=== PATIENT | male | born 1990 | race Caucasian/White ===

== ENCOUNTER 2016-10-26 00:31 | Emergency (ER) | payer SELFPAY ==
[~2016-10-26] VITALS: Ht 170.2 cm; Wt 108.9 kg
[2016-10-26 01:18] LABS: BASO # 0.1 x10^3/uL (0.0-0.2); BASO % 1 % (0-3); EOS % 3 % (0-3); HEMATOCRIT 44.3 % (39.0-53.0); LYMPH # 3.1 x10^3/uL (1.0-4.8); LYMPH % 35 % (24-48); MEAN CORPUSCULAR HEMOGLOBIN 31 pg (25-35); MEAN CORPUSCULAR HGB CONC 34 g/dL (31-37); MEAN CORPUSCULAR VOLUME 90 fL (79-100); MONO % 9 % (0-9); NEUT % 52 % (31-73); PLATELET COUNT 264 x10^3/uL (140-400); RED BLOOD COUNT 4.91 x10^6/uL (4.30-5.70); RED CELL DISTRIBUTION WIDTH 13.3 % (11.5-14.5); WHITE BLOOD COUNT 8.8 x10^3/uL (4.0-11.0)
[2016-10-26 01:28] LABS: CALCIUM 9.5 mg/dL (8.5-10.1); CREATININE 0.9 mg/dL (0.7-1.3); GFR 103.7; POTASSIUM 4.2 mmol/L (3.5-5.1)
[2016-10-26] MEDS ORDERED: IOHEXOL 300 MG/ML 75 ML VIAL IV ONE (01:30)
[2016-10-26] MEDS ORDERED: CONTRAST GIVEN MC PRN (01:30)
[2016-10-26 01:34] LABS: ALBUMIN 3.9 g/dL (3.4-5.0); ALBUMIN/GLOBULIN RATIO 1.3 (1.0-1.7); TOTAL BILIRUBIN 0.2 mg/dL (0.2-1.0); TOTAL PROTEIN 6.8 g/dL (6.4-8.2)
[2016-10-26 01:34] LABS: POTASSIUM ISTAT 3.8 mmol/L (3.5-5.0)
[2016-10-26] MEDS ORDERED: IBUP-1007 PO (01:58)
[2016-10-26] MEDS ORDERED: HYDR-971 PO (01:58)
--- NOTE | 2016-10-26 01:58 | PHYS DOC ---
Past Medical History Past Medical History: No Pertinent History Past Surgical History: Other Additional Past Surgical Histo: VENOUS ANEURISM RIGHT LEG, Alcohol Use: None Drug Use: None Adult General Chief Complaint Chief Complaint: SHORTNESS OF BREATH HPI HPI Patient is a 26 year old gentleman with no past medical history who presents here today complaining of shortness of breath for 2 weeks. 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 Patient reports over the last couple weeks he's been having increasing shortness of breath with any type of exertion. Patient reports when he walks upstairs with his cement bags he feels extremely tired by the end of the steps. Reports this is extremely unusual for him. Patient denies any history of hypertension diabetes liver longer kidney pals. Patient has no history of asthma. Patient does not smoke drink or do any drugs. Patient is allergic to any medications. 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 Patient denies any fevers shakes chills. Patient has any cough cold runny nose. Patient has a nausea vomiting or diarrhea. Patient has any lower extremity edema. Patient denies any abdominal pain. Patient denies a chest discomfort. Patient denies any orthopnea or PND. Patient denies any weight loss or weight gain. Patient admits to increased swelling over the last few days. Patient's ER physical exam is significant for a slight tachycardia. Patient's been approximately 100 215 in the ER upon initial presentation. Patient is been observed throughout his ER stay for several hours and his heart rate currently is running in the 80s to 90s. Patient initially him presentation was diaphoretic and cool and clammy. Upon reevaluation at 6:15 Am, patient is no longer diaphoretic or cool and clammy. Patient feels much better while just stay here. Patient has no lower some edema. Patient's lungs were clear without any wheezing rales or rhonchi. Patient's abdomen was soft nontender no rebound or guarding. Patient's thyroid is not palpable. Review of systems: Constitutional: Denies fever or chills Eyes: Denies change in visual acuity, redness, or eye pain HENT: Denies nasal congestion or sore throat All other review systems are negative except as documented in the history of present illness portion. Physical exam: Constitutional: Well developed, well nourished, no acute distress, non-toxic appearance. HENT: Normocephalic, atraumatic, bilateral external ears normal, nose normal. Eyes: EOMI, conjunctiva normal, no discharge. Neck: Normal range of motion, no tenderness, supple, no stridor. Cardiovascular:Heart rate regular rhythm Lungs & Thorax: Bilateral breath sounds clear to auscultation no respiratory distress Abdomen: Bowel sounds normal, soft, no tenderness, no masses, no pulsatile masses. Skin: Warm, dry, no erythema, no rash. Back: No tenderness, no CVA tenderness. Extremities: No tenderness, no cyanosis, no clubbing, ROM intact, no edema. Neurologic: Alert and oriented X 3, normal motor function, normal sensory function, no focal deficits noted. Psychologic: Affect normal, judgement normal, mood normal. CT scan Patient had a CTA of his thorax to rule out PE given that his symptoms were concerning for possible PE with his tachycardia and his shortness of breath. Unfortunately the CTA due to technical difficulties did not illuminate the pulmonary arteries with contrast therefore it was indeterminate. Given that this is a healthy 26-year-old gentleman who does not smoke the option for VQ scan was suggested. VQ scan Pending Assessment and plan 26-year-old gentleman who presents to the ER today secondary to shortness of breath that's been progressing over the last 2 weeks. Patient's ER workup is been completely unremarkable thus far except for an elevated TSH level suggestive of mild hypo thyroidism. Patient's EKG revealed sinus tachycardia with nonspecific ST-T wave abnormalities at a heart rate of 105. No evidence of ST elevation [place]. No chamber enlargement. Normal intervals. Patient's CT scan was indeterminate. Patient's BNP was normal. Patient's troponin within normal limits. Hemoglobin was within normal limits. Patient had normal electrolytes and normal renal function. I discussed the results with the patient. He does have an appointment on Thursday with his primary care physician for evaluation of the symptoms. Pending a normal VQ scan the patient will be discharged home and he is understanding of this plan. He is in agreement with this plan as he currently feels that it while he sitting there. I have discussed with him that I will put down his lab test results on his discharge instructions that he can have him to discuss with his primary care physician. I will also discuss with him to make sure his primary care physician is aware of his thyroid level so that she may initiate treatment for further evaluation as she sees fit. Patient otherwise clinically and hemodynamically stable for discharge. Current Medications Current Medications Current Medications Medications (Trade) Dose Ordered Sig/Rossi Start Time Stop Time Status Last Admin Dose Admin Info (Do NOT chart on this entry -- for MONITORING) 1 each PRN DAILY PRN 10/26/16 01:30 10/28/16 01:29 Iohexol (Omnipaque 300 Mg/ml) 75 ml 1X ONCE 10/26/16 01:30 10/26/16 01:31 DC 10/26/16 01:58 75 ML Allergies Allergies Allergies Coded Allergies Type Severity Reaction Last Updated Verified No Known Drug Allergies 10/26/16 No Laboratory Tests Test 10/26/16 01:05 10/26/16 01:12 10/26/16 01:31 10/26/16 04:15 White Blood Count 8.8 x10^3/uL Red Blood Count 4.91 x10^6/uL Hemoglobin 15.0 g/dL Hematocrit 44.3 % Mean Corpuscular Volume 90 fL Mean Corpuscular Hemoglobin 31 pg Mean Corpuscular Hemoglobin Concent 34 g/dL Red Cell Distribution Width 13.3 % Platelet Count 264 x10^3/uL Neutrophils (%) (Auto) 52 % Lymphocytes (%) (Auto) 35 % Monocytes (%) (Auto) 9 % Eosinophils (%) (Auto) 3 % Basophils (%) (Auto) 1 % Neutrophils # (Auto) 4.6 x10^3uL Lymphocytes # (Auto) 3.1 x10^3/uL Monocytes # (Auto) 0.8 x10^3/uL Eosinophils # (Auto) 0.3 x10^3/uL Basophils # (Auto) 0.1 x10^3/uL D-Dimer (Jeane) 0.27 ug/mlFEU Sodium Level 142 mmol/L Potassium Level 4.2 mmol/L Chloride Level 104 mmol/L Carbon Dioxide Level 28 mmol/L Anion Gap 10 20 mmol/L Blood Urea Nitrogen 18 mg/dL Creatinine 0.9 mg/dL Estimated GFR (Cockcroft-Gault) 103.7 BUN/Creatinine Ratio 20 Glucose Level 125 mg/dL 121 mg/dL Calcium Level 9.5 mg/dL Total Bilirubin 0.2 mg/dL Aspartate Amino Transf (AST/SGOT) 51 U/L Alanine Aminotransferase (ALT/SGPT) 103 U/L Alkaline Phosphatase 79 U/L Troponin I Quantitative < 0.017 ng/mL QL-Ilt-P-Type Natriuretic Peptide 22 pg/mL Total Protein 6.8 g/dL Albumin 3.9 g/dL Albumin/Globulin Ratio 1.3 Thyroid Stimulating Hormone (TSH) 21.969 uIU/mL Bedside Hemoglobin 15.0 g/dL Bedside Hematocrit 44 % Bedside Sodium 141 mmol/L Bedside Potassium 3.8 mmol/L Bedside Chloride 101 mmol/L Bedside Total CO2 25 mmol/L Bedside Blood Urea Nitrogen 18 mg/dL Bedside Creatinine 0.9 mg/dL Bedside Ionized Calcium (Dulce) 1.24 mmol/L Bedside Troponin I 0.00 ng/ml Urine Opiates Screen Neg Urine Methadone Screen Neg Urine Barbiturates Neg Urine Phencyclidine Screen Neg Urine Amphetamine/Methamphetamine Neg Urine Benzodiazepines Screen Neg Urine Cocaine Screen Neg Urine Cannabinoids Screen Neg Urine Ethyl Alcohol Neg Current Medications Medications (Trade) Dose Ordered Sig/Rossi Route PRN Reason Start Time Stop Time Status Last Admin Dose Admin Iohexol (Omnipaque 300 Mg/ml) 75 ml 1X ONCE IV 10/26/16 01:30 10/26/16 01:31 DC 10/26/16 01:58 75 ML Info (Do NOT chart on this entry -- for MONITORING) 1 each PRN DAILY PRN MC SEE COMMENTS 10/26/16 01:30 10/28/16 01:29 Current Patient Data Vital Signs Vital Signs Date Time Temp Pulse Resp B/P (MAP) Pulse Ox O2 Delivery O2 Flow Rate FiO2 10/26/16 04:46 84 19 123/78 (93) 99 Room Air 10/26/16 00:52 98.9 98.9 Lab Values Laboratory Tests Test 10/26/16 01:05 10/26/16 01:12 10/26/16 01:31 10/26/16 04:15 White Blood Count 8.8 x10^3/uL (4.0-11.0) Red Blood Count 4.91 x10^6/uL (4.30-5.70) Hemoglobin 15.0 g/dL (13.0-17.5) Hematocrit 44.3 % (39.0-53.0) Mean Corpuscular Volume 90 fL (79-100) Mean Corpuscular Hemoglobin 31 pg (25-35) Mean Corpuscular Hemoglobin Concent 34 g/dL (31-37) Red Cell Distribution Width 13.3 % (11.5-14.5) Platelet Count 264 x10^3/uL (140-400) Neutrophils (%) (Auto) 52 % (31-73) Lymphocytes (%) (Auto) 35 % (24-48) Monocytes (%) (Auto) 9 % (0-9) Eosinophils (%) (Auto) 3 % (0-3) Basophils (%) (Auto) 1 % (0-3) Neutrophils # (Auto) 4.6 x10^3uL (1.8-7.7) Lymphocytes # (Auto) 3.1 x10^3/uL (1.0-4.8) Monocytes # (Auto) 0.8 x10^3/uL (0.0-1.1) Eosinophils # (Auto) 0.3 x10^3/uL (0.0-0.7) Basophils # (Auto) 0.1 x10^3/uL (0.0-0.2) D-Dimer (Jeane) 0.27 ug/mlFEU (0.00-0.50) Sodium Level 142 mmol/L (136-145) Potassium Level 4.2 mmol/L (3.5-5.1) Chloride Level 104 mmol/L (98-107) Carbon Dioxide Level 28 mmol/L (21-32) Anion Gap 10 (6-14) 20 mmol/L (6-14) H Blood Urea Nitrogen 18 mg/dL (8-26) Creatinine 0.9 mg/dL (0.7-1.3) Estimated GFR (Cockcroft-Gault) 103.7 BUN/Creatinine Ratio 20 (6-20) Glucose Level 125 mg/dL (70-99) H 121 mg/dL (70-99) H Calcium Level 9.5 mg/dL (8.5-10.1) Total Bilirubin 0.2 mg/dL (0.2-1.0) Aspartate Amino Transferase (AST) 51 U/L (15-37) H Alanine Aminotransferase (ALT) 103 U/L (16-63) H Alkaline Phosphatase 79 U/L (46-116) Troponin I Quantitative < 0.017 ng/mL (0.000-0.055) DE-Oav-O-Type Natriuretic Peptide 22 pg/mL (0-124) Total Protein 6.8 g/dL (6.4-8.2) Albumin 3.9 g/dL (3.4-5.0) Albumin/Globulin Ratio 1.3 (1.0-1.7) Thyroid Stimulating Hormone (TSH) 21.969 uIU/mL (0.358-3.74) H POC Hemoglobin 15.0 g/dL (14-18) POC Hematocrit 44 % (37-52) POC Sodium 141 mmol/L (135-145) POC Potassium 3.8 mmol/L (3.5-5.0) POC Chloride 101 mmol/L (98-110) POC Total CO2 25 mmol/L (23-32) POC Blood Urea Nitrogen 18 mg/dL (8-26) POC Creatinine 0.9 mg/dL (0.5-1.4) POC Ionized Calcium (Dulce) 1.24 mmol/L (1.13-1.32) POC Troponin I 0.00 ng/ml (<0.08) Urine Opiates Screen Neg (NEG) Urine Methadone Screen Neg (NEG) Urine Barbiturates Neg (NEG) Urine Phencyclidine Screen Neg (NEG) Urine Amphetamine/Methamphetamine Neg (NEG) Urine Benzodiazepines Screen Neg (NEG) Urine Cocaine Screen Neg (NEG) Urine Cannabinoids Screen Neg (NEG) Urine Ethyl Alcohol Neg (NEG) Laboratory Tests 10/26/16 01:05 Laboratory Tests 10/26/16 01:05 10/26/16 01:12 EKG EKG [] Radiology/Procedures Radiology/Procedures [] Course & Med Decision Making Course & Med Decision Making Pertinent Labs and Imaging studies reviewed. (See chart for details) [] Dragon Disclaimer Dragon Disclaimer This electronic medical record was generated, in whole or in part, using a voice recognition dictation system. Departure Departure Impression: Primary Impression: Dyspnea Disposition: HOME, SELF-CARE Condition: IMPROVED Referrals: NO PCP (PCP) Additional Instructions: Thank you for allowing us to participate in your care today. Followup with your primary care physician in 3 days if your symptoms do not improve. Call your Primary Doctor tomorrow and inform them of your visit today. If you do not have a primary care provider you can ask for a list of our primary care providers. Return to the emergency department you have any new or concerning findings. This should be evaluated by the primary care physician and any necessary consulting services for continued management within a few days after discharge. Return to emergency room if you have any new or concerning symptoms including but not limited to fever, chills, nausea, vomiting, intractable pain, any new rashes, chest pain, shortness of air, uncontrolled bleeding, difficulty breathing, and/or vision loss. You may have been prescribed medication that can change in your level of thinking and ability to operate machinery. These medications include hydrocodone and Ativan. Also, Benadryl has been known to do this as well. Be sure to check with your pharmacist and ask if the medications you've prescribed can affect your level of consciousness. I recommend not operating heavy machinery or driving while on medication such as these. Patient's TSH; 22.0 ROLANDO HOOKS MD Oct 26, 2016 01:58
--- NOTE | 2016-10-26 02:33 | RAD ---
Examination: CT angiography chest HISTORY: History of shortness of breath COMPARISON: None available technique: Axial CT angiography images were performed with IV contrast. Coronal and sagittal reformats are performed. Exposure: One or more of the following individualized dose reduction techniques were utilized for this examination: 1. Automated exposure control 2. Adjustment of the mA and/or kV according to patient size 3. Use of iterative reconstruction technique FINDINGS: The central airways are patent. The caliber of the aorta grossly appears unremarkable. The heart size grossly appears unremarkable. No evidence of pericardial effusion. There is no contrast identified in the pulmonary arteries or its branches. The lungs are clear. The visualized liver, spleen, adrenals grossly appears unremarkable. No evidence of lytic bony destructive lesion. IMPRESSION: 1. Normal caliber of the thoracic aorta. 2. The pulmonary arteries and branches cannot be evaluated as there is no contrast within the pulmonary artery or its branches. 3. The lungs are clear. Electronically signed by: Tramaine Escamilla MD (10/26/2016 2:29 AM) [id number]
[2016-10-26 04:40] LABS: BARBITURATES NEG (NEG); BENZODIAZEPINES NEG (NEG); CANNABINOIDS NEG (NEG); COCAINE NEG (NEG); METHADONE NEG (NEG); OPIATES NEG (NEG); PHENCYCLIDINE NEG (NEG)
[2016-10-26 06:17] VITALS: BP 139/91
--- NOTE | 2016-10-26 06:27 | RAD ---
VQ Scan: Clinical History: Shortness of breath. Comparison: CT images same day exam which was nondiagnostic Technique: 13 mCi of xenon-133 was administered as an aerosol and spot views were obtained on a gamma camera for a Nuclear Medicine ventilation examination. 5.0 mCi of Tc 99m MAA was administered intravenously and spot views were obtained on the gamma camera for a Nuclear Medicine perfusion examination. Static images were reviewed as a V/Q scan. Findings: There is mild diffuse heterogeneity of activity on the ventilation study without significant radiotracer retention on the washout phase. Perfusion images are homogeneous without perfusion defects. This is very low probability for pulmonary embolism based on the modified PIOPED criteria. Impression: Very low probability for pulmonary embolism. Electronically signed by: Tramaine Escamilla MD (10/26/2016 6:24 AM) [id number]
--- NOTE | 2016-10-26 07:10 | EKG ---
[facility] [address] [place] [address] Test Date: 2016-10-26 Test Time: 01:19:09 Pat Name: JES TROTTER Department: Room: Gender: M [employer]: : 1990 Requested By: ROLANDO HOOKS Order Number: [id number] Reading MD: Glenna Collins Measurements Intervals [place] Rate: 105 P: 41 RI: 136 QRS: 48 QRSD: 82 T: 15 QT: 308 QTc: 411 Interpretive Statements SINUS TACHYCARDIA OTHERWISE NORMAL ECG Electronically Signed On 10-26-2016 20:14:34 CDT by Glenna Collins
== END 2016-10-26 06:38 | disposition home or self-care (01) ==
LOC: ER 00:31
DX: R06.00 Dyspnea, unspecified (principal); R00.0 Tachycardia, unspecified; I83.91 Asymptomatic varicose veins of right lower extremity
CPT/HCPCS: 36415; 71275; 78582; 80047; 80053; 80307; 83880; 84443; 84484; 85025; 85379; 93005; 96374; 99285; A9540; A9558; Q9967; G0479